=== PATIENT | male | born 1975 | race Caucasian/White ===

== ENCOUNTER 2019-08-08 22:46 | Emergency (ER) | payer OTHER ==
[2019-08-08 22:51] VITALS: BP 169/102; PULSE 92; RESP 20; TEMP 98.1
[2019-08-08] MEDS ORDERED: KETOROLAC 60 MG/2 ML VIAL IM STA (22:58)
--- NOTE | 2019-08-08 23:29 | XR ---
EXAM: XR Chest, 2 Views CLINICAL HISTORY: Cough and back pain TECHNIQUE: Frontal and lateral views of the chest. COMPARISON: No relevant prior studies available. FINDINGS: Lungs: Unremarkable. No consolidation. Pleural space: Unremarkable. No pneumothorax. Heart: Unremarkable. No cardiomegaly. Mediastinum: Unremarkable. Bones/joints: Unremarkable. IMPRESSION: Normal chest x-rays.
--- NOTE | 2019-08-08 23:44 | XR ---
EXAM: XR Thoracic Spine, 3 Views CLINICAL HISTORY: Back pain TECHNIQUE: Frontal, lateral and swimmer's views of the thoracic spine. COMPARISON: No relevant prior studies available. FINDINGS: Vertebrae: No acute fracture or traumatic malalignment. Multilevel degenerative changes with mild scoliosis. Disc spaces: No acute findings. No significant narrowing. Soft tissues: Unremarkable. IMPRESSION: No acute findings in the thoracic spine.
--- NOTE | 2019-08-08 23:54 | ED ---
General Adult HPI - General Chief complaint: Back Pain/Injury Stated complaint: Back Pain Time Seen by Provider: 08/08/19 22:52 Source: patient, RN notes reviewed, old records reviewed Mode of arrival: ambulatory Limitations: no limitations - History of Present Illness Initial comments: 43-year-old male patient with no pertinent past male patient presents to ED for chief complaint of right parathoracic back pain. Coughing. Patient reports that he has been having waxing and waning cough for approximately 3 weeks. Patient ports that his has multiple sclerosis and he helps her with activities of daily life. Patient force that he bent over to help pick her up today and cough that the exact same time and began experiencing right parathoracic pain. Denies any radiculopathy. Denies any red flag symptoms, denies any symptoms of cauda equina. Patient ambulatory without difficulty. Systemic: Pt denies fatigue, fever/chills, rash. Pt denies weakness, night sweats, weight loss. Neuro: Pt denies headache, visual disturbances, syncope or pre-syncope. HEENT: Pt denies ocular discharge or irritation, otalgia, rhinorrhea, pharyngitis or notable lymphadenopathy. Cardiopulmonary: Pt denies chest pain, SOB, heart palpitations, dyspnea on exertion. Abdominal/GI: Pt denies abdominal pain, n/v/d. : Pt denies dysuria, burning w/ urination, frequency/urgency. Denies new onset urinary or bowel incontinence. MSK: Pt denies myalgia, loss of strength or function in extremities. Neuro: Pt denies new onset weakness, paresthesias. - Related Data Allergies Allergy/AdvReac Type Severity Reaction Status Date / Time No Known Allergies Allergy Verified 08/08/19 22:51 Review of Systems ROS Statement: Those systems with pertinent positive or pertinent negative responses have been documented in the HPI. ROS Other: All systems not noted in ROS Statement are negative. Past Medical History Past Medical History: No Reported History History of Any Multi-Drug Resistant Organisms: None Reported Past Surgical History: Orthopedic Surgery Additional Past Surgical History / Comment(s): lt knee Past Psychological History: No Psychological Hx Reported Smoking Status: Never smoker Past Alcohol Use History: None Reported Past Drug Use History: None Reported General Exam - General Exam Comments Initial Comments: Constitutional: NAD, AOX3, Pt has pleasant affect. HEENT: NC/AT, trachea midline, neck supple, no lymphadenopathy. Posterior pharynx non erythematous, without exudates. External ears appear normal, without discharge. Mucous membranes moist. Eyes PERRLA, EOM intact. There is no scleral icterus. No pallor noted. Cardiopulmonary: RRR, no murmurs, rubs or gallops, no JVD noted. Lungs CTAB in anterior and posterior jackson. No peripheral edema. Abdominal exam: Abdomen soft and non-distended. Abdomen non-tender to palpation in all 4 quadrants. Bowel sounds active in LLQ. No hepatosplenomegaly. No ecchymosis Neuro: CN II-XII grossly intact. No nuchal rigidity. No raccon eyes, no bobby sign, no hemotympanum. No cervical spinal tenderness. MSK: Right parathoracic region mildly tender to palpation. No skin changes. no midline tenderness. Heel to toe walking intact. 5 out of 5 strength quadriceps psoas muscles. No posterior calf tenderness bilaterally, homans sign negative bilaterally. Posterior tibialis and radial pulse +2 bilaterally. Sensation intact in upper and lower extremities. Full active ROM in upper and lower extremities, 5/5 stregnth. Limitations: no limitations Course Vital Signs 08/08/19 22:47 Temperature 98.1 F Pulse Rate 92 Respiratory 20 Rate Blood Pressure 169/102 O2 Sat by Pulse 99 Oximetry Medical Decision Making - Medical Decision Making 43-year-old male patient presents to ED for chief complaint of right parathoracic pain after coughing. Denies any radiculopathy, denies any red flag symptoms. Patient vital signs stable, afebrile. Physical exam did not display acute pathology. Chest x-ray is negative. Thoracic x-rays negative. Patient likely expressing musculoskeletal strain. Patient administered lidocaine patch. Patient will be discharged will follow-up with primary care provider, return to ER if condition worsens. Disposition Clinical Impression: Thoracic back pain Disposition: HOME SELF-CARE Condition: Stable Instructions (If sedation given, give patient instructions): Acute Low Back Pain (ED) Additional Instructions: follow-up with primary care provider tomorrow. Remove lidocaine patch after 10- 12 hours. Use Tylenol and Motrin as needed for pain. Return to ER if condition worsens. Is patient prescribed a controlled substance at d/c from ED?: No Referrals: Shamar Hernández MD [Primary Care Provider] - 1-2 days
[2019-08-08] MEDS ORDERED: LIDOCAINE 5% PATCH TOPICAL STA (23:55)
[2019-08-09] MEDS ORDERED: CYCLOBENZAPRINE 10MG STARTER 3 TAB BTL PO STA
--- NOTE | 2019-08-09 | ED ---
Disposition Clinical Impression: Thoracic back pain Disposition: HOME SELF-CARE Condition: Stable Instructions (If sedation given, give patient instructions): Acute Low Back Pain (ED) Additional Instructions: follow-up with primary care provider tomorrow. Remove lidocaine patch after 10- 12 hours. Use Tylenol and Motrin as needed for pain. Return to ER if condition worsens. symptoms do not improve or worsen information for orthopedic back surgeon was provided. Is patient prescribed a controlled substance at d/c from ED?: No Referrals: Shamar Hernández MD [Primary Care Provider] - 1-2 days Jaswinder Smith DO [Doctor of Osteopathic Medicine] - 1-2 days
== END 2019-08-09 00:18 | disposition home or self-care (01) ==
LOC: EC 22:46
DX: M54.6 Pain in thoracic spine (principal); R05 Cough; X50.9XXA Other and unspecified overexertion or strenuous movements or postures, initial encounter
CPT/HCPCS: 72072; 71046; 99284; 96372; J1885